=== PATIENT | female | born 1995 | race Caucasian/White ===

== ENCOUNTER 2018-06-26 09:56 | Emergency (ER) | payer MEDICAID ==
[2018-06-26 10:33] LABS: BASO % 0.3 % (0-6); EOS % 2.7 % (0-6); GRAN % 61.2 % (47-80); HEMATOCRIT 38.9 % (35.0-47.0); HEMOGLOBIN 13.2 gm/dl (11.6-16.0); LYMPH % 28.6 % (16-45); MEAN CELL VOLUME 88.6 fl (81-97); MEAN CORPUSCULAR HEMOGLOBIN 30.1 pg (27-33); MEAN CORPUSCULAR HGB CONC 33.9 g/dl (32-36); MEAN PLATELET VOLUME 9.6 fl (7.4-10.4); MONO % 7.2 % (0-9); PLATELET COUNT 404 K/uL (130-400); RED BLOOD COUNT 4.39 M/uL (3.80-5.40); RED CELL DISTRIBUTION WIDTH 12.9 % (11.5-14.5); WHITE BLOOD COUNT W/O DIFF 7.8 K/uL (4.2-12.2)
--- NOTE | 2018-06-26 10:38 | Emergency Department Record ---
History of Present Illness - General Chief complaint: Vaginal bleeding Stated complaint: PREG, CRAMPS,BLEEDING Time Seen by Provider: 06/26/18 10:11 Source: Patient Mode of Arrival: Ambulatory Limitations: No limitations - History of Present Illness Initial comments: pt is 6 wks and spotting and cramping w pain on the left. she was told by her ob dr to come to er. her ob doc has been tracking her blood levels which are slowly rising. no clots or tissue MD Complaint: Pelvic pain, Vaginal bleeding Location: Suprapubic, LLQ Severity: Mild Severity scale (1-10): 3 Quality: Cramping Consistency: Intermittent Improves with: None Worsens with: None Patient : Yes LMP Date: 05/17/18 Gestational Age (wks) based on LMP: 5 Associated Symptoms: Vaginal bleeding - Related Data Sexually active: Yes Home Medications Medication Instructions Recorded Confirmed Last Taken No Home Med [NO HOME MEDS] 06/26/18 06/26/18 Unknown Allergies Allergy/AdvReac Type Severity Reaction Status Date / Time No Known Drug Allergies Allergy Verified 06/26/18 10:05 Travel Screening - Travel/Exposure Within Last 30 Days Have you traveled within the last 30 days?: No Review of Systems Reviewed: No additional complaints except as noted below Constitutional: Reports: As per HPI. Denies: Chills, Fever, Malaise, Night sweats, Weakness, Weight change Eyes: Reports: As per HPI. Denies: Eye discharge, Eye pain, Photophobia, Vision change ENT: Reports: As per HPI. Denies: Congestion, Dental pain, Ear pain, Epistaxis , Hearing loss, Throat pain Respiratory: Reports: As per HPI. Denies: Cough, Dyspnea, Hemoptysis, Stridor, Wheezes Cardiovascular: Reports: As per HPI. Denies: Arrhythmia, Chest pain, Dyspnea on exertion, Edema, Murmurs, Orthopnea, Palpitations, Paroxysmal nocturnal dyspnea, Rheumatic Fever, Syncope Endocrine: Reports: As per HPI. Denies: Fatigue, Heat or cold intolerance, Polydipsia, Polyuria Gastrointestinal: Reports: As per HPI. Denies: Abdominal pain, Constipation, Diarrhea, Hematemesis, Hematochezia, Melena, Nausea, Vomiting Genitourinary: Reports: As per HPI. Denies: Abnormal menses, Discharge, Dyspareunia, Dysuria, Frequency, Hematuria, Incontinence, Retention, Urgency Musculoskeletal: Reports: As per HPI. Denies: Arthralgia, Back pain, Gout, Joint swelling, Myalgia, Neck pain Skin: Reports: As per HPI. Denies: Bruising, Change in color, Change in hair/ nails, Lesions, Pruritus, Rash Neurological: Reports: As per HPI. Denies: Abnormal gait, Confusion, Headache, Numbness, Paresthesias, Seizure, Tingling, Tremors, Vertigo, Weakness Psychiatric: Reports: As per HPI. Denies: Anxiety, Auditory hallucinations, Depression, Homicidal thoughts, Suicidal thoughts, Visual hallucinations Hematological/Lymphatic: Reports: As per HPI. Denies: Anemia, Blood Clots, Easy bleeding, Easy bruising, Swollen glands Past Medical History - SOCIAL HISTORY Smoking Status: Former smoker Alcohol Use: None Drug Use: None - RESPIRATORY Hx Respiratory Disorders: No - CARDIOVASCULAR Hx Cardio Disorders: No - NEURO Hx Neuro Disorders: No - GI Hx GI Disorders: No - Hx Genitourinary Disorders: No - ENDOCRINE Hx Endocrine Disorders: No - MUSCULOSKELETAL Hx Musculoskeletal Disorders: No - PSYCH Hx Psych Problems: Yes Hx Anxiety: Yes - HEMATOLOGY/ONCOLOGY Hx Hematology/Oncology Disorders: No Family Medical History Any Significant Family History?: Yes Hx Cancer: Mother Hx Heart Disease: Grandparents Physical Exam - General General Appearance: Alert, Oriented x3, Cooperative, Mild distress - Head Head exam: Normal inspection - Eye Eye exam: Normal appearance, PERRL, EOMI Pupils: Normal accommodation - ENT ENT exam: Normal exam, Mucous membranes moist, Normal external ear exam, Normal orophraynx Ear exam: Normal external inspection. negative: External canal tenderness Nasal Exam: Normal inspection. negative: Discharge, Sinus tenderness Mouth exam: Normal external inspection, Tongue normal Teeth exam: Normal inspection. negative: Dental caries Throat exam: Normal inspection. negative: Tonsillar erythema, Tonsillar exudate - Neck Neck exam: Normal inspection, Full ROM. negative: Tenderness - Respiratory Respiratory exam: Normal lung sounds bilaterally. negative: Respiratory distress - Cardiovascular Cardiovascular Exam: Normal rhythm, Normal heart sounds, Tachycardia - GI/Abdominal GI/Abdominal exam: Soft, Normal bowel sounds. negative: Tenderness - Rectal Rectal exam: Deferred - exam: Deferred - Extremities Extremities exam: Normal inspection, Full ROM, Normal capillary refill. negative: Tenderness - Back Back exam: Reports: Normal inspection, Full ROM. Denies: Muscle spasm, Rash noted, Tenderness - Neurological Neurological exam: Alert, CN II-XII intact, Normal gait, Oriented X3 - Psychiatric Psychiatric exam: Normal affect, Normal mood - Skin Skin exam: Dry, Intact, Normal color, Warm Course Vital Signs 06/26/18 10:01 Temperature 98.6 F Pulse Rate 102 H Respiratory 18 Rate Blood Pressure 149/103 Pulse Ox 100 - Reevaluation(s) Reevaluation #1: 06/26/18 13:30 us shows tiny iup and l ovarian cyst. d/w dr bui who will call pt this afternoon. Medical Decision Making - Lab Data Result diagrams: 06/26/18 10:27 Disposition Disposition: Discharge Clinical Impression: Threatened Disposition: Home, Self-Care Condition: (1) Good Instructions: Threatened Miscarriage (ED) Additional Instructions: follow up with ob in 1-2days. no intercourse till cleared by ob.. rest. return sooner if worse. if pain gets worse or bleeding gets heavy return here or [facility] right away. dr redd will call you. Forms: Patient Portal Access Quality - Quality Measures Quality Measures: N/A - Blood Pressure Screening Does Patient Have Any of the Following: No Blood Pressure Classification: Hypertensive Reading Systolic Measurement: 149 Diastolic Measurement: 103 Screening for High Blood Pressure: < First Hypertensive BP, F/U Documented > [ G8950] First Hypertensive Follow-up Interventions: Follow-up with rescreen GT 1 day and LT 4 weeks.
[2018-06-26 13:12] LABS: URINE APPEARANCE CLEAR; URINE BILIRUBIN NEGATIVE (NEGATIVE); URINE BLOOD SMALL (NEGATIVE); URINE COLOR YELLOW; URINE GLUCOSE (UA) NEGATIVE (NEGATIVE); URINE KETONE NEGATIVE (NEGATIVE); URINE LEUKOCYTE ESTERASE NEGATIVE (NEGATIVE); URINE NITRITE NEGATIVE (NEGATIVE); URINE PROTEIN NEGATIVE (NEGATIVE); URINE UROBILINOGEN 0.2 E.U./dL (0.20 - 1.00)
[2018-06-26 13:22] LABS: URINE WBC NONE SEEN (0-2/hpf)
--- NOTE | 2018-06-26 13:36 | ULTRASOUND REPORT ---
EXAM: EMERGENCY FIRST TRIMESTER OB ULTRASOUND WITH TRANSVAGINAL AND DOPPLER HISTORY: FIRST TRIMESTER WITH SPOTTING SINCE LAST NIGHT AND PAIN. TECHNIQUE: Emergency real-time ultrasound examination of the pelvis was performed utilizing transabdominal and transvaginal technique. Because of pain , Doppler ultrasound will also be performed with color flow and spectral analysis. Comparison: No prior ultrasound with which to compare. FINDINGS: TRANSABDOMINAL PELVIC ULTRASOUND: The uterus is identified measuring about 3.8 cm in AP x 5.3 cm in transverse diameters x 9.8 cm in length. Small ring like echogenic structure in the uterine fundus somewhat poorly seen on the transabdominal approach, but consistent with a tiny intrauterine gestational sac. No obvious pole or yolk sac seen within this on the transabdominal portion of the study. The maternal right ovary is seen measuring 2 cm in size with arterial and venous flow evident with color flow and spectral analysis Doppler. No right adnexal mass evident. The left ovary is identified measuring about 2.6 cm in size and containing a small cystic structure about 1 cm in size, nonspecific, although presumably a small corpus luteum cyst. Arterial and venous flow are evident in the left ovary with color flow and spectral analysis Doppler as well. No free fluid identified. TRANSVAGINAL PELVIC ULTRASOUND: In an effort to better visualize the apparent very small intrauterine gestational sac in particular, transvaginal study was also performed. There is a very small amount of free fluid seen in the cul-de- sac transvaginally which is nonspecific. The uterus is better seen transvaginally and the apparent intrauterine gestational sac is better seen. There is a very tiny ring like structure within this which is probably a very early yolk sac, however, no recognizable pole is seen as of yet and no cardiac flicker identified. Mean sac diameter is only about 5 mm, too small to generate an estimated gestational age on the computer printout. Because of the early age of the , amniotic fluid, placenta, and anatomy cannot be adequately evaluated. The maternal right ovary is seen measuring about 3.4 cm in size and containing some tiny cysts. Arterial and venous flow evident with color flow and spectral analysis Doppler. The left ovary is identified measuring about 4.6 cm in maximum length, also demonstrating arterial and venous flow. There is some tiny follicles and also a more prominent complex cystic mass about 1.7 cm in size, nonspecific, although presumably a hemorrhagic corpus luteum cyst. Findings are nonspecific at this point. Given the history of spotting and lack of demonstration of an IUP, this could represent an early incomplete spontaneous , however, this could also represent an early where the pole is simply not yet visible within the intrauterine gestational sac. With a positive test and lack of demonstration of a pole, ectopic cannot be absolutely be excluded, although this probably does represent a early intrauterine gestational sac rather than just decidual reaction, given the well defined echogenic appearance of the wall and probable tiny yolk sac. Close clinical follow-up is suggested, perhaps a quantitative serial serum HCG determinations, and if the patient remains clinically and stable, follow-up transvaginal ultrasound sound in a week or so may be useful to reassess. IMPRESSION: 1. TINY AMOUNT OF NONSPECIFIC FREE FLUID IN THE CUL-DE-SAC. 2. COMPLEX CYSTIC MASS LEFT OVARY ABOUT 1.7 CM IN SIZE, NONSPECIFIC, ALTHOUGH PRESUMABLY A HEMORRHAGIC CORPUS LUTEUM CYST. 3. TINY INTRAUTERINE FLUID COLLECTION PROBABLY REPRESENTING A VERY EARLY INTRAUTERINE GESTATIONAL SAC CONTAINING A TINY YOLK SAC, BUT NO RECOGNIZABLE POLE OF YET. FOLLOW-UP DESCRIBED ABOVE SUGGESTED . JOB NUMBER: [id number] [facility]
== END 2018-06-26 13:42 | disposition home or self-care (01) ==
LOC: ER 09:56
DX: O20.0 Threatened abortion (principal); Z3A.01 Less than 8 weeks gestation of pregnancy; Z87.891 Personal history of nicotine dependence
CPT/HCPCS: 76801; 76817; 81001; 84702; 85025; 86901; 99283; 99284

== ENCOUNTER 2019-05-10 00:24 | Emergency (ER) | payer MEDICAID ==
[2019-05-10 00:56] LABS: ABSOLUTE NEUTROPHIL COUNT 5.47; BASO % 0.2 % (0-6); EOS % 3.7 % (0-6); GRAN % 50.4 % (47-80); HEMATOCRIT 38.2 % (35.0-47.0); HEMOGLOBIN 11.8 gm/dl (11.6-16.0); MEAN CELL VOLUME 80.1 fl (81-97); MEAN CORPUSCULAR HEMOGLOBIN 24.7 pg (27-33); MEAN CORPUSCULAR HGB CONC 30.9 g/dl (32-36); MEAN PLATELET VOLUME 9.8 fl (7.4-10.4); MONO % 9.7 % (0-9); PLATELET COUNT 478 K/uL (130-400); RED BLOOD COUNT 4.77 M/uL (3.80-5.40); RED CELL DISTRIBUTION WIDTH 17.4 % (11.5-14.5); WHITE BLOOD COUNT W/O DIFF 10.8 K/uL (4.2-12.2)
--- NOTE | 2019-05-10 01:26 | Emergency Department Record ---
History of Present Illness - General Chief complaint: Fatigue and Weakness Stated complaint: FEELS SHAKEY FOR 2 HOURS Time Seen by Provider: 05/10/19 00:43 Source: Patient Mode of Arrival: Ambulatory Limitations: No limitations - History of Present Illness Initial comments: pt became dizzy and thought she was going to faint .. she has deep pain in her l thigh. she had a csection 9wks ago. she was restarted on the mirena. she just got back from a trip to [place]. she denies cp or sob MD Complaint: Generalized weakness Onset/Timin -: Hour(s) Location: LLE Severity: Moderate Severity scale (1-10): 7 Quality: Sharp Consistency: Constant, Intermittent Improves with: None Worsens with: None Associated Symptoms: Denies other symptoms - [place] Coma Scale Eye Response: (4) Open spontaneously Motor Response: (6) Obeys commands Verbal Response: (5) Oriented [place] Total: 15 - Related Data Home Medications Medication Instructions Recorded Confirmed Last Taken Levonorgestrel [Mirena] 1 each IY ASDIR 05/10/19 05/10/19 05/04/19 Allergies Allergy/AdvReac Type Severity Reaction Status Date / Time No Known Drug Allergies Allergy Verified 06/26/18 10:05 Travel Screening - Travel/Exposure Within Last 30 Days Have you traveled within the last 30 days?: Yes Location Detail:: [place] - Travel/Exposure Within Last Year Have you traveled outside the [place] in the last year?: No - Additonal Travel Details Have you been exposed to anyone with a communicable illness?: No - Travel Symptoms Symptom Screening: None Review of Systems Reviewed: No additional complaints except as noted below Constitutional: Reports: As per HPI. Denies: Chills, Fever, Malaise, Night sweats, Weakness, Weight change Eyes: Reports: As per HPI. Denies: Eye discharge, Eye pain, Photophobia, Vision change ENT: Reports: As per HPI. Denies: Congestion, Dental pain, Ear pain, Epistaxis, Hearing loss, Throat pain Respiratory: Reports: As per HPI. Denies: Cough, Dyspnea, Hemoptysis, Stridor, Wheezes Cardiovascular: Reports: As per HPI. Denies: Arrhythmia, Chest pain, Dyspnea on exertion, Edema, Murmurs, Orthopnea, Palpitations, Paroxysmal nocturnal dyspnea, Rheumatic Fever, Syncope Endocrine: Reports: As per HPI. Denies: Fatigue, Heat or cold intolerance, Polydipsia, Polyuria Gastrointestinal: Reports: As per HPI. Denies: Abdominal pain, Constipation, Diarrhea, Hematemesis, Hematochezia, Melena, Nausea, Vomiting Genitourinary: Reports: As per HPI. Denies: Abnormal menses, Discharge, Dyspareunia, Dysuria, Frequency, Hematuria, Incontinence, Retention, Urgency Musculoskeletal: Reports: As per HPI. Denies: Arthralgia, Back pain, Gout, Joint swelling, Myalgia, Neck pain Skin: Reports: As per HPI. Denies: Bruising, Change in color, Change in hair/nails, Lesions, Pruritus, Rash Neurological: Reports: As per HPI. Denies: Abnormal gait, Confusion, Headache, Numbness, Paresthesias, Seizure, Tingling, Tremors, Vertigo, Weakness Psychiatric: Reports: As per HPI. Denies: Anxiety, Auditory hallucinations, Depression, Homicidal thoughts, Suicidal thoughts, Visual hallucinations Hematological/Lymphatic: Reports: As per HPI. Denies: Anemia, Blood Clots, Easy bleeding, Easy bruising, Swollen glands Past Medical History - SOCIAL HISTORY Smoking Status: Former smoker Alcohol Use: None Drug Use: None - RESPIRATORY Hx Respiratory Disorders: No - CARDIOVASCULAR Hx Cardio Disorders: No - NEURO Hx Neuro Disorders: No - GI Hx GI Disorders: No - Hx Genitourinary Disorders: No - ENDOCRINE Hx Endocrine Disorders: No - MUSCULOSKELETAL Hx Musculoskeletal Disorders: No - PSYCH Hx Psych Problems: Yes Hx Anxiety: Yes - HEMATOLOGY/ONCOLOGY Hx Hematology/Oncology Disorders: No Family Medical History Any Significant Family History?: Yes Hx Cancer: Mother Hx Heart Disease: Grandparents Physical Exam - General General Appearance: Alert, Oriented x3, Cooperative, Mild distress - Head Head exam: Normal inspection - Eye Eye exam: Normal appearance, PERRL, EOMI Pupils: Normal accommodation - ENT ENT exam: Normal exam, Mucous membranes moist, Normal external ear exam, Normal orophraynx Ear exam: Normal external inspection. negative: External canal tenderness Nasal Exam: Normal inspection. negative: Discharge, Sinus tenderness Mouth exam: Normal external inspection, Tongue normal Teeth exam: Normal inspection. negative: Dental caries Throat exam: Normal inspection. negative: Tonsillar erythema, Tonsillar exudate - Neck Neck exam: Normal inspection, Full ROM. negative: Tenderness - Respiratory Respiratory exam: Normal lung sounds bilaterally. negative: Respiratory distress - Cardiovascular Cardiovascular Exam: Regular rate, Normal rhythm, Normal heart sounds - GI/Abdominal GI/Abdominal exam: Soft, Normal bowel sounds. negative: Tenderness - Rectal Rectal exam: Deferred - exam: Deferred - Extremities Extremities exam: Full ROM, Normal capillary refill, Tenderness (l thigh) - Back Back exam: Reports: Normal inspection, Full ROM. Denies: Muscle spasm, Rash noted, Tenderness - Neurological Neurological exam: Alert, Normal gait, Oriented X3, Reflexes normal - Psychiatric Psychiatric exam: Normal affect, Normal mood - Skin Skin exam: Dry, Intact, Normal color, Warm Course Vital Signs 05/10/19 00:30 Temperature 97.9 F Pulse Rate [ 87 Left] Respiratory 16 Rate Blood Pressure 126/76 [Left Arm] Pulse Ox 100 - Reevaluation(s) Reevaluation #1: 05/10/19 01:26 d/w marco who accepted. Medical Decision Making - Lab Data Result diagrams: 05/10/19 00:45 05/10/19 00:45 Lab Results 05/10/19 05/10/19 Range/Units 00:45 00:45 WBC 10.8 (4.2-12.2) K/uL RBC 4.77 (3.80-5.40) M/uL Hgb 11.8 (11.6-16.0) gm/dl Hct 38.2 (35.0-47.0) % MCV 80.1 L (81-97) fl MCH 24.7 L (27-33) pg MCHC 30.9 L (32-36) g/dl RDW 17.4 H (11.5-14.5) % Plt Count 478 H (130-400) K/uL MPV 9.8 (7.4-10.4) fl Gran % 50.4 (47-80) % Lymphocytes % 36.0 (16-45) % Monocytes % 9.7 H (0-9) % Eosinophils % 3.7 (0-6) % Basophils % 0.2 (0-6) % Absolute Neutrophils 5.47 D-Dimer 0.50 (0-0.59) mg/L FEU Disposition Disposition: Transfer Clinical Impression: Leg pain Qualifiers: Laterality: left Qualified Code(s): M79.605 - Pain in left leg Disposition: Home, Self-Care Transfer To: [facility] Reason For Transfer: needs doppler of leg Accepting Physician: dr stratton Time Discussed w/Accepting Physician: 01:31 Quality - Quality Measures Quality Measures: N/A - Blood Pressure Screening Does Patient Have Any of the Following: No Blood Pressure Classification: Pre-Hypertensive BP Reading Systolic Measurement: 126 Diastolic Measurement: 76 Screening for High Blood Pressure: < Pre-Hypertensive BP, F/U Documented > [G8950] Pre-Hypertensive Follow-up Interventions: Follow-up with rescreen every year.
[2019-05-10 01:35] LABS: BILIRUBIN,TOTAL < 0.20 mg/dL (0.2-1.0); BLOOD UREA NITROGEN 13 mg/dL (6-20); CREATININE 0.8 mg/dL (0.5-0.9); EST GLOMERULAR FILTRATION RATE > 60 mL/min
[2019-05-10 01:36] LABS: TOTAL PROTEIN 7.1 g/dL (6.6-8.7)
[2019-05-10 01:38] LABS: GLUCOSE,RANDOM 96 mg/dL (74-109)
[2019-05-10 01:41] LABS: ALB/GLOB RATIO 1.3 (1.1-1.8); ALKALINE PHOSPHATASE 144 U/L (35-104); ALT/SGPT 31 U/L (<33); AST/SGOT 19 U/L (10.0-35.0)
== END 2019-05-10 01:49 | disposition home or self-care (01) ==
LOC: ER 00:24
DX: M79.652 Pain in left thigh (principal); R53.1 Weakness; R42 Dizziness and giddiness
CPT/HCPCS: 80053; 85025; 85379; 93005; 93010; 99285